=== PATIENT | male | born 1980 | race Caucasian/White ===

== ENCOUNTER → 2020-10-20 | Outpatient (CLI) | payer OTHER | END | disposition home or self-care (01) | LOC: STAR 15:28 | DX: Z20.822 Contact with and (suspected) exposure to COVID-19 (principal) | CPT/HCPCS: 87635 ==

== ENCOUNTER 2020-10-25 09:20 | Emergency (ER) | payer OTHER ==
[~2020-10-25] VITALS: Ht 180.3 cm; Wt 115.9 kg
[~2020-10-25 09:20] MED LIST: ATEN50TA41 PO; LISI-170 PO; [UNRECOGNIZED DRUG - CODE] PO
[2020-10-25] MEDS ORDERED: LABETALOL 5MG/ML, 20ML IVPush ONE (09:30)
[2020-10-25] MEDS ORDERED: LABETALOL 5MG/ML, 20ML ONE (09:35)
[2020-10-25 09:59] LABS: BASOPHILS % (AUTO) 1 % (0-1); EOSINOPHILS % (AUTO) 3 % (1-7); LYMPHOCYTES % (AUTO) 33 % (22-44); MD NO; MEAN CORPUSCULAR HEMOGLOBIN 30.9 pg (27.5-34.5); MEAN CORPUSCULAR HGB CONC 34.6 g/dL (33.2-36.2); MEAN PLATELET VOLUME 7.6 fL (7.4-10.4); MONOCYTES % (AUTO) 8 % (2-9); NEUTROPHILS % (AUTO) 55 % (42-75); PLATELET COUNT 258 x10^3/uL (130-400); RED BLOOD COUNT 5.23 x10^6/uL (4.38-5.82); RED CELL DISTRIBUTION WIDTH 12.9 % (9.4-14.8)
[2020-10-25 10:09] LABS: ALANINE AMINOTRANSFERASE 62 U/L (12-78); ANION GAP 5 mmol/L (5-15); CHLORIDE 104 mmol/L (98-107)
[2020-10-25 10:12] LABS: ALKALINE PHOSPHATASE 92 U/L (45-117); BILIRUBIN,TOTAL 0.5 mg/dL (0.2-1.0); CREATININE 0.89 mg/dL (0.7-1.3); TOTAL PROTEIN 8.1 g/dL (6.4-8.2)
[2020-10-25 10:30] VITALS: BP 146/107
== END 2020-10-25 11:18 | disposition home or self-care (01) ==
LOC: ED 10:05
DX: I10 Essential (primary) hypertension (principal); R51.9 Headache, unspecified; R07.89 Other chest pain
CPT/HCPCS: 36415; 71045; 80053; 85025; 93005; 96374; 99285

== ENCOUNTER → 2020-11-04 | Outpatient (CLI) | payer OTHER ==
[~2020-11-04] MED LIST changes: +BETA BLOCKER PO; +LEVO125T5 PO
== END | disposition home or self-care (01) ==
LOC: STAR 11:31
PROVIDERS: ATTEND Orthopaedic Surgery Hand Surgery
DX: Z20.822 Contact with and (suspected) exposure to COVID-19 (principal); S66.801A Unspecified injury of other specified muscles, fascia and tendons at wrist and hand level, right hand, initial encounter; X58.XXXA Exposure to other specified factors, initial encounter; Y92.89 Other specified places as the place of occurrence of the external cause; Y93.89 Activity, other specified; Y99.8 Other external cause status
CPT/HCPCS: 87635

== ENCOUNTER 2020-11-08 07:54 | Day surgery (SDC) | payer OTHER ==
[~2020-11-08] VITALS: Ht 180.3 cm; Wt 117.4 kg
[~2020-11-08 07:54] MED LIST changes: +HYDR-3241 PO; +NEBI10TA3 PO; +TRIA1TAB3 PO
[2020-11-08] MEDS ORDERED: CHLORHEXIDINE 15 ML UDC ONE (08:47)
[2020-11-08 08:51] VITALS: BP 153/98
[2020-11-08] MEDS ORDERED: CHLORHEXIDINE 15 ML UDC MM ONE (09:00)
[2020-11-08] MEDS ORDERED: LACTATED RINGERS 1,000 ML IV SCH (09:00)
[2020-11-08] MEDS ORDERED: BUPIVACAINE/PF 0.5% ONE (10:10)
[2020-11-08] MEDS ORDERED: LIDOCAINE-MPF 1%, 5ML ONE (10:10)
[2020-11-08] MEDS ORDERED: FENTANYL PF 100 MCG/2ML ONE ×3 (10:16→12:09)
[2020-11-08] MEDS ORDERED: MIDAZOLAM 1 MG/ML, 2ML ONE (10:16)
[2020-11-08] MEDS ORDERED: PROPOFOL 10 MG/ML, 20ML ONE (10:17)
[2020-11-08] MEDS ORDERED: SUCCINYLCHOLINE 20 MG/ML, 10ML ONE (10:18)
[2020-11-08] MEDS ORDERED: DEXAMETHASONE 4 MG/ML, 1ML ONE (10:26)
[2020-11-08] MEDS ORDERED: ONDANSETRON 2MG/ML, 2ML ONE (10:26)
[2020-11-08] MEDS ORDERED: CEFAZOLIN 1,000 MG ONE (10:26)
[2020-11-08] MEDS ORDERED: DIPHENHYDRAMINE 50 MG/ML, 1ML IVPush PRN ×2 (11:00)
[2020-11-08] MEDS ORDERED: MEPERIDINE/PF 25MG/0.5ML IVPush PRN (11:00)
[2020-11-08] MEDS ORDERED: EPHEDRINE 50 MG/ML, 1ML IVPush PRN (11:00)
[2020-11-08] MEDS ORDERED: PROMETHAZINE 25 MG/ML, 1ML IVPush PRN (11:00)
[2020-11-08] MEDS ORDERED: hydrALAzine 20 MG/ML, 1ML IV PRN (11:00)
[2020-11-08] MEDS ORDERED: MIDAZOLAM 1 MG/ML, 2ML IV PRN (11:00)
[2020-11-08] MEDS ORDERED: FENTANYL PF 100 MCG/2ML IV PRN (11:00)
[2020-11-08] MEDS ORDERED: ALBUTEROL SULFATE 2.5 MG/3 ML NPPB PRN (11:00)
[2020-11-08] MEDS ORDERED: LABETALOL 5MG/ML, 20ML IV PRN (11:00)
[2020-11-08] MEDS ORDERED: ACETAMINOPHEN 325 MG TABLET PO PRN (11:00)
[2020-11-08] MEDS ORDERED: ONDANSETRON 2MG/ML, 2ML IVPush PRN (11:00)
[2020-11-08] MEDS ORDERED: PROMETHAZINE 12.5 MG SUPP PR PRN (11:00)
[2020-11-08] MEDS ORDERED: HYDROmorphone 1 MG/ML, 1ML INJ IVPush PRN (11:00)
[2020-11-08] MEDS ORDERED: DIAZEPAM 5 MG/ML, 2ML IVPush PRN (11:00)
[2020-11-08] MEDS ORDERED: OXYcodone 5 MG/5 ML ORAL.SOL UDC ONE (11:41)
[2020-11-08] MEDS ORDERED: ACETAMINOPHEN 650 MG/20.3 ML UDC ONE (11:41)
[2020-11-08] MEDS: OXYcodone 5 MG/5 ML ORAL.SOL UDC PO PRN ×2 (11:57→12:42)
== END 2020-11-08 13:50 | disposition home or self-care (01) ==
LOC: OUT 07:54
PROVIDERS: ATTEND Orthopaedic Surgery Hand Surgery
DX: G56.01 Carpal tunnel syndrome, right upper limb (principal); M65.311 Trigger thumb, right thumb; I10 Essential (primary) hypertension; Z79.890 Hormone replacement therapy; Z79.899 Other long term (current) drug therapy
CPT/HCPCS: 26055; 64721; J0330; J0690; J1100; J2250; J2405; J2704; J3010; J7120